=== PATIENT | female | born 1940 | race Caucasian/White ===

== ENCOUNTER → 2016-09-06 18:20 | Emergency (ER) | payer OTHER ==
[~2016-09-06 18:20] MED LIST changes: -ACETAMINOPHEN 325 MG TAB PO ONE
== END | disposition left against medical advice (07) ==
LOC: E/R 18:20
DX: Z53.21 Procedure and treatment not carried out due to patient leaving prior to being seen by health care provider (principal)

== ENCOUNTER → 2016-09-06 | Emergency (ER) | payer OTHER ==
[~2016-09-06] VITALS: Ht 160 cm; Wt 95.6 kg
[~2016-09-06] MED LIST: ACET500C5 PO; ACETAMINOPHEN 325 MG TAB PO ONE; ASPI-306; DUR25P; EZET1TAB40; FURO40TA4; METO100T; NCN500CCR; POTA75TA2; SULF1TAB7; VALS320T11
[2016-09-06 18:35] VITALS: Ht 160 cm; Wt 95.6 kg
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
[2016-09-06 20:43] VITALS: BP 186/88; PULSE 66; RESP 18; TEMP 98.3
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
== END | disposition home or self-care (01) ==
LOC: FTE 18:32
DX: S60.222A Contusion of left hand, initial encounter (principal); I10 Essential (primary) hypertension; E11.9 Type 2 diabetes mellitus without complications; V89.2XXA Person injured in unspecified motor-vehicle accident, traffic, initial encounter; Z95.1 Presence of aortocoronary bypass graft; Z79.82 Long term (current) use of aspirin
CPT/HCPCS: 70450; 72125; 73564; 93005

== ENCOUNTER 2017-12-13 09:36 | Emergency (ER) | END 2017-12-13 12:11 | disposition home or self-care (01) ==

== ENCOUNTER 2018-06-05 00:01 | Observation (INO) | END 2018-06-07 13:46 | disposition home or self-care (01) ==

== ENCOUNTER 2018-12-04 14:00 | Emergency (ER) | payer OTHER ==
[~2018-12-04] VITALS: Wt 89.0 kg
[~2018-12-04 14:00] MED LIST changes: -ACET500C5 PO; +ALLO300T2 PO; +AMOX1TAB9 PO; +CARV25TA79 PO; +DOCU-216 PO; -DUR25P; -EZET1TAB40; +HYDR-3672 PO; +ISOS5TAB2 PO; +LANT3I SC; +LINA5TAB PO; -METO100T; -NCN500CCR; +NOVO3I SC; +OMEP40CA6 PO; -POTA75TA2; +SIMV40TA2 PO; -SULF1TAB7; -VALS320T11
[2018-12-04] MEDS ORDERED: SOD CHLORIDE 0.9% 500 ML IV STA (14:21)
--- NOTE | 2018-12-04 14:28 | ERD ---
ER Documentation Chief Complaint Chief Complaint NOT FEELING WELL , HTN, TODAY CP, DIZZY HPI This is a 78-year-old female with a past medical history of hypertension, hyperlipidemia, diabetes, coronary artery disease, gated by previous OH status post three-vessel CABG, congestive heart failure who is presenting with 1 day of feeling generally unwell, waxing and waning lightheadedness. The patient also reports waxing and waning mid substernal nonradiating pressure-like chest discomfort beginning today. This pain lasted only a few minutes. She noticed that she was hypertensive at the time and reportedly took nitroglycerin. She felt lightheaded shortly after taking the nitroglycerin. The patient denies any trouble breathing. She has not had any episodes of diaphoresis. She has not had any nausea or vomiting. The patient currently reports feeling well. She does not endorse any chest pain currently. The patient denies feeling sick recently. The patient denies fever or chills. The patient has had no headache or vision changes. The patient does not endorse neck or back pain. The patient denies abdominal pain. The patient denies changes to bowel movements or urination. The patient has had no focal deficits. The patient has had no weakness or numbness or tingling to the face or extremities. ROS All systems reviewed and are negative except as per history of present illness. Medications Home Meds Reported Medications Calcium Carb/Mag Ox/Zinc Sulf (Rgckwqe-Ldkjsbjdm-Zvhd Tablet) 1 Each Tablet, 1 EACH PO DAILY, TAB 12/04/18 Cyanocobalamin (Vitamin B-12) (Vitamin B-12) 3,000 Mcg Tab.subl, 3000 MCG SL DAILY 12/04/18 [place]-3 Fatty Acids/Fish Oil (Fish Oil 1,000 mg Capsule) 1 Each Capsule, 1 EACH PO BID, CAP 12/04/18 Aspirin* (Aspirin* EC) 325 Mg Tab, 325 MG PO QHS, TAB 12/04/18 Insulin Glargine* (Lantus*) 100 Unit/Ml Soln, 32 UNIT SC QHS, #1 VIAL 12/04/18 Insulin Aspart* (Novolog Insulin Pen*) 100 Unit/Ml Soln, 18 UNIT SC WITH MEALS, EA 12/04/18 Nitroglycerin* (Nitroglycerin* SL) 0.4 Mg Tab.subl, 0.4 MG SL Q5MIN PRN for CHEST PAIN, BOTTLE 12/04/18 Colchicine* (Colcrys*) 0.6 Mg Tablet, 0.6 MG PO NEEDED, TAB 12/04/18 Docusate Sodium* (Colace*) 100 Mg Capsule, 100 MG PO DAILY, #30 CAP 12/04/18 Simvastatin* (Zocor*) 40 Mg Tablet, 40 MG PO QHS, #30 TAB 12/04/18 Allopurinol* (Allopurinol*) 300 Mg Tablet, 300 MG PO DAILY, TAB 12/04/18 Clonidine Hcl* (Clonidine Hcl*) 0.1 Mg Tab, 0.1 MG PO NEEDED, TAB 12/04/18 Hydralazine Hcl* (Hydralazine Hcl*) 100 Mg Tablet, 100 MG PO BID, #90 TAB 12/04/18 Isosorbide Dinitrate* (Isordil*) 5 Mg Tab, 5 MG PO BID, TAB 12/04/18 Carvedilol* (Carvedilol*) 25 Mg Tablet, 25 MG PO BID, #60 TAB 12/04/18 Losartan Potassium* (Losartan Potassium*) 100 Mg Tablet, 100 MG PO DAILY, TAB 12/04/18 Furosemide* (Furosemide*) 40 Mg Tablet, 40 MG PO DAILY, TAB 12/04/18 Omeprazole* (Omeprazole*) 40 Mg Capsule.dr, 40 MG PO DAILY, #30 CAP 12/04/18 Discontinued Reported Medications Omeprazole* (Omeprazole*) 40 Mg Capsule.dr, 40 MG PO QAM, #30 CAP 06/05/18 Simvastatin* (Zocor*) 40 Mg Tablet, 40 MG PO QHS, #30 TAB 06/05/18 Carvedilol* (Carvedilol*) 25 Mg Tablet, 25 MG PO BID, #60 TAB 06/05/18 Allopurinol* (Allopurinol*) 300 Mg Tablet, 300 MG PO DAILY, TAB 06/05/18 Insulin Glargine* (Lantus*) 100 Unit/Ml Soln, 30 UNIT SC QHS, #1 VIAL 06/05/18 Insulin Aspart* (Novolog Insulin Pen*) 100 Unit/Ml Soln, 18 UNIT SC TID, EA 06/05/18 Hydralazine Hcl* (Hydralazine Hcl*) 50 Mg Tab, 50 MG PO BID, #120 TAB 06/05/18 Isosorbide Dinitrate* (Isosorbide Dinitrate*) 5 Mg Tablet, 5 MG PO TID, TAB 06/05/18 Aspirin (Analgesic) 325 Mg Tablet 03/17/10 Furosemide (Lasix) 40 Mg Tab 03/17/10 Discontinued Scripts Amoxicillin/Potassium Clav (Amox-Clav 500-125 mg Tablet) 500-125 mg Tab, 1 TAB PO BID for 5 Days, #10 TAB Prov:SYED ANDRE 06/07/18 Linagliptin (TRADJENTA) 5 Mg Tablet, 5 MG PO DAILY, #30 TAB 2 Refills Prov:CELESTINE ALLENIrais 06/06/18 Docusate Sodium (Dok) 100 Mg Capsule, 100 MG PO BID, #60 CAP 1 Refill Prov:CELESTINE ALLENIrais 06/06/18 Allergies Allergies: Coded Allergies: Sulfa (Sulfonamide Antibiotics) (Verified Allergy, Severe, HALLUCINATION; SOB, 12/04/18) pioglitazone (Unverified Allergy, Mild, 12/04/18) hydrocodone (Verified Allergy, Unknown, 12/04/18) PMhx/Soc History of Surgery: Yes (OPEN HEART SURGERY, 3 BYPASS) Anesthesia Reaction: No Hx Neurological Disorder: No Hx Respiratory Disorders: No Hx Cardiac Disorders: Yes (CHF, HTN, HEART SURGERY, [place] CHOLESTEROL) Hx Psychiatric Problems: No Hx Miscellaneous Medical Probl: No Hx Alcohol Use: No Hx Substance Use: No Hx Tobacco Use: No FmHx Family History: diabetes Physical Exam Vitals Vital Signs Date Temp Pulse Resp B/P (MAP) Pulse Ox O2 O2 Flow FiO2 Time Delivery Rate 12/04/18 70 18 145/60 100 Room Air 17:15 (88) 12/04/18 69 18 149/81 100 Nasal 14:47 (103) Cannula 12/04/18 14:27 12/04/18 98.1 72 18 142/67 99 14:08 (92) Physical Exam Const: No acute distress Head: Atraumatic Eyes: Normal Conjunctiva ENT: Normal External Ears, Nose and Mouth. Neck: Full range of motion. No meningismus. Resp: Bibasilar rales. No increased work of breathing. Cardio: Regular rate and rhythm, no murmurs Abd: Soft, non tender, non distended. Normal bowel sounds Skin: No petechiae or rashes Back: No midline or flank tenderness Ext: No cyanosis, or edema Neur: Awake and alert Psych: Normal Mood and Affect Result Diagram: 12/04/18 1442 12/04/18 1442 Results 24 hrs Laboratory Tests Test 12/04/18 14:42 12/04/18 16:56 White Blood Count 8.8 10^3/ul Red Blood Count 3.83 10^6/ul Hemoglobin 11.2 g/dl Hematocrit 33.9 % Mean Corpuscular Volume 88.5 fl Mean Corpuscular Hemoglobin 29.2 pg Mean Corpuscular Hemoglobin Concent 33.0 g/dl Red Cell Distribution Width 14.5 % Platelet Count 188 10^3/UL Mean Platelet Volume 10.2 fl Immature Granulocytes % 0.900 % Neutrophils % 70.6 % Lymphocytes % 17.7 % Monocytes % 7.1 % Eosinophils % 3.2 % Basophils % 0.5 % Nucleated Red Blood Cells % 0.0 /100WBC Immature Granulocytes # 0.080 10^3/ul Neutrophils # 6.2 10^3/ul Lymphocytes # 1.6 10^3/ul Monocytes # 0.6 10^3/ul Eosinophils # 0.3 10^3/ul Basophils # 0.0 10^3/ul Nucleated Red Blood Cells # 0.0 10^3/ul Prothrombin Time 12.5 Sec Prothrombin Time Ratio 1.0 INR International Normalized Ratio 0.92 Sodium Level 138 mmol/L Potassium Level 4.3 mmol/L Chloride Level 103 mmol/L Carbon Dioxide Level 25 mmol/L Anion Gap 10 Blood Urea Nitrogen 35 mg/dl Creatinine 1.88 mg/dl Est Glomerular Filtrat Rate mL/min mL/min Glucose Level 176 mg/dl Calcium Level 9.7 mg/dl Troponin I < 0.012 ng/ml < 0.012 ng/ml B-Type Natriuretic Peptide 830 PG/ML Current Medications Medications Dose Sig/Jerald Start Time Status Last (Trade) Ordered Route PRN Stop Time Admin Dose Reason Admin Sodium 500 ml @ Q1H STAT 12/04/18 DC 12/04/18 Chloride 500 mls/hr IV 14:21 14:46 12/04/18 15:20 Procedures/MDM MDM The patient's presentation warrants further investigation. Previous medical records, if available, were reviewed. LABS The patient's laboratory testing was obtained and reviewed. No emergent treatment was required unless described below. CBC: No E/o systemic infection or thrombocytopenia. Normocytic anemia, nonemergent. Chemistry: No E/o severe acidosis or alkalosis or diabetic ketoacidosis. Elevated BUN and creatinine with known kidney disease. PT/INR: No E/o significant coagulopathy Troponin: No E/o acute ischemia x2 BNP: Indeterminate without clinical suspicion of any acute heart failure exacerbation. EKG EKG read by me: Rate/Rhythm: Regular rate and rhythm at a rate of 60 bpm Intervals: Normal Paragon: Normal Impression: T wave flattening in the inferior leads without evidence of acute ischemia or arrhythmia IMAGING Imaging and Radiology interpretation reviewed. CXR FINDINGS: Lines/Tubes: None. Low lung volumes accentuate the cardiac silhouette and vascular markings. Mild left basilar atelectasis. No focal consolidation, pleural effusions, or pneumothorax. Apparent left lateral chronic rib fracture deformities. Sternotomy wires are present. Apparent small hiatal hernia. IMPRESSION: 1. Mild left basilar atelectasis in this low lung volume exam. 2. Apparent small hiatal hernia. Electronically viewed and signed by Sari Otero Physician on 12/04/2018 14:49 TREATMENT/DISPOSITION The patient's chest xray does not reveal pneumonia or pneumothorax or pleural effusions or pulmonary edema. The patient does not have a widened mediastinum and does not have signs or symptoms concerning for thoracic aortic aneurysm or dissection. The patient does not have pneumomediastinum or signs concerning for esophageal tear or rupture. The patient has no clinical or radiographic signs of pericardial effusion or tamponade. The patient does not have pneumoperitoneum and I have decreased suspicion of viscus perforation as possible referred pain. The patient does not have a history of heart failure and I have low suspicion for this. The patient does not have a diagnosis of COPD and is not wheezing today. The patient is not tachypneic or hypoxic. The patient is breathing comfortably and without pleuritic pain. The patient is not on hormonal therapy. The patient has no history of clotting or bleeding disorders. The patient has no calf tenderness. The patient has had no hemoptysis. I have decreased suspicion for PE. The patient's troponin and EKG are reassuring. Repeat troponin was sent off approximately 2 hours later, which remained unremarkable. I have very low suspicion for acute coronary syndrome. I spoke with Dr. Seth, oncall supply chain tech for the patient's supply chain tech, Dr. Daniels, who was reassured by the work-up. He felt that outpatient management in the next 3 days would be appropriate. DISCHARGE Upon reevaluation of the patient, symptoms have improved. No emergent diagnoses were identified. At this time, I feel that the patient stable for discharge. The patient was instructed to follow-up with a primary care physician in 1-3 days. The patient will be given strict precautions with which to return to the emergency department. Prescriptions: None The patient's blood pressure was elevated at greater than 120/80 while in the emergency department. The patient was otherwise stable with no evidence of hypertensive urgency or emergency. The patient does not require admission for blood pressure control. I have discussed with the patient the risks of hypertension. I have instructed the patient to return to the ER for any new or worsening symptoms including chest pain, shortness of breath, headache, blurred vision, confusion, nausea, vomiting or LOC. I have advised the patient to follow up with the primary care physician for outpatient monitoring and treatment for hypertension in 1-3 days. Disclaimer: Inadvertent spelling and grammatical errors are likely due to EHR /dictation software use and do not reflect on the overall quality of patient care. Note that the electronic time recorded on this note does not necessarily reflect the actual time of the patient encounter. Departure Diagnosis: Primary Impression: Nonspecific chest pain Additional Impressions: Fatigue Fatigue type: unspecified Qualified Codes: R53.83 - Other fatigue Elevated blood pressure reading Normocytic anemia Chronic kidney disease Chronic kidney disease stage: unspecified stage Qualified Codes: N18.9 - Chronic kidney disease, unspecified Chronic CHF Heart failure type: unspecified Qualified Codes: I50.9 - Heart failure, unspecified Condition: Stable Patient Instructions: Chest Pain, Uncertain Cause, Generalized Weakness, Heart Failure, General Additional Instructions: Thank you for for coming to [facility] for your care today. Please ask your nurse or provider if you have questions about your care today and do not leave until all your questions have been answered. Please use any medications given as directed and follow-up with your doctor (or the doctor you were referred to) in the next 1-3 days. If you do not have a primary care doctor you may follow up at the [facility] or [facility] clinic (listed below). You may also use motrin and tylenol as needed for fever and/or pain unless instructed otherwise by your provider or nurse. Indications for more urgent follow-up have been discussed, but you may return to the Emergency Department at ANY time for any worrisome or worsening symptoms. If you have abdominal pain, please know that no test or exam you received is perfect and you should follow up within 8 hours for continued pain. If you had any imaging studies today, such as an X-Ray or CT Scan, these studies will be reviewed later by a radiologist. You will be called if there are important findings that were not identified today, so make sure the contact information you provided at registration is correct. If you received any narcotic pain control medicine today, such as Vicodin, Morphine or Dilaudid, your coordination and judgment may be affected for a number of hours. Please do not drive or operate heavy machinery, and you may want someone to assist you at home. If you were given a prescription for narcotic medication, be aware that it is very addictive- use sparingly and only if necessary. PLEASE SEEK FURTHER EVALUATION AND MANAGEMENT AT YOUR DOCTORS OFFICE WITHIN THE NEXT 1-3 DAYS. IT IS YOUR RESPONSIBILITY TO MAKE AN APPOINTMENT FOR FOLOW-UP CARE. IF YOU HAVE A PRIMARY DOCTOR, PLEASE CALL THEIR OFFICE TO SCHEDULE AN APPOIN TMENT FOR FOLLOW UP. IF YOU DO NOT HAVE A PRIMARY DOCTOR YOU CAN CALL OUR PHYSICIAN REFERRAL HOTLINE AT IF YOU CAN NOT AFFORD TO SEE A PHYSICIAN YOU CAN CHOSE FROM THE FOLLOWING [facility] CLINICS: [facility] [address] [facility] [address] [facility]. [facility] [address] [facility] [address] [facility] [address] [facility]. [facility]. [address] KOBE LOTT MD December 04, 2018 14:27
[2018-12-04] MEDS ORDERED: OMEP40CA6 PO (15:01)
[2018-12-04] MEDS ORDERED: CARV25TA79 PO (15:02)
[2018-12-04] MEDS ORDERED: FURO40TA4 PO (15:02)
[2018-12-04] MEDS ORDERED: LOSA100T15 PO (15:02)
[2018-12-04] MEDS ORDERED: ISOS5TAB2 PO (15:03)
[2018-12-04] MEDS ORDERED: ALLO300T2 PO (15:04)
[2018-12-04] MEDS ORDERED: HYDR100T25 PO (15:04)
[2018-12-04] MEDS ORDERED: CLON-379 PO (15:04)
[2018-12-04] MEDS ORDERED: DOCU-144 PO (15:05)
[2018-12-04] MEDS ORDERED: SIMV40TA2 PO (15:05)
[2018-12-04] MEDS ORDERED: NITR0.4T32 SL (15:06)
[2018-12-04] MEDS ORDERED: COLC0.6T6 PO (15:06)
[2018-12-04] MEDS ORDERED: NOVO3I SC (15:06)
[2018-12-04] MEDS ORDERED: LANT3I SC (15:07)
[2018-12-04] MEDS ORDERED: ASPI325T32 PO (15:07)
[2018-12-04] MEDS ORDERED: OMEG-135 PO (15:08)
[2018-12-04] MEDS ORDERED: CYAN30003 SL (15:09)
[2018-12-04] MEDS ORDERED: CALC-729 PO (15:10)
[2018-12-04 18:43] VITALS: BP 145/64; PULSE 75; RESP 18
== END 2018-12-04 18:49 | disposition home or self-care (01) ==
LOC: E/R 14:00
DX: D64.9 Anemia, unspecified (principal); I13.0 Hypertensive heart and chronic kidney disease with heart failure and stage 1 through stage 4 chronic kidney disease, or unspecified chronic kidney disease; N18.9 Chronic kidney disease, unspecified; I50.9 Heart failure, unspecified; E11.9 Type 2 diabetes mellitus without complications; I25.10 Atherosclerotic heart disease of native coronary artery without angina pectoris; I25.2 Old myocardial infarction; Z95.1 Presence of aortocoronary bypass graft; Z79.82 Long term (current) use of aspirin; Z79.4 Long term (current) use of insulin
CPT/HCPCS: 36415; 71045; 80048; 83880; 84484; 85025; 85610; 93005; 96360; 96361; 99285; J7040

== ENCOUNTER 2019-03-16 14:06 | Emergency (ER) | payer OTHER ==
[~2019-03-16 14:06] MED LIST changes: -AMOX1TAB9 PO; -ASPI-306; +ASPI325T32 PO; +CALC-729 PO; +CLON-379 PO; +COLC0.6T6 PO; +CYAN30003 SL; +DOCU-144 PO; -DOCU-216 PO; -FURO40TA4; +FURO40TA4 PO; -HYDR-3672 PO; +HYDR100T25 PO; -LINA5TAB PO; +LOSA100T15 PO; +NITR0.4T32 SL; +OMEG-135 PO
== END 2019-03-16 16:46 | disposition left against medical advice (07) ==
LOC: E/R 14:06
DX: Z53.21 Procedure and treatment not carried out due to patient leaving prior to being seen by health care provider (principal)

== ENCOUNTER 2019-03-16 18:50 | Emergency (ER) | payer OTHER ==
[~2019-03-16] VITALS: Ht 162.6 cm; Wt 88.7 kg
[2019-03-16 19:03] VITALS: Ht 162.6 cm; Wt 88.7 kg
[2019-03-16] MEDS ORDERED: NICARDipine HCL 30 MG CAPSULE PO ONE (20:00)
[2019-03-16 21:01] VITALS: BP 119/52; PULSE 58; RESP 14
== END 2019-03-16 21:20 | disposition home or self-care (01) ==
LOC: E/R 18:50
DX: I13.0 Hypertensive heart and chronic kidney disease with heart failure and stage 1 through stage 4 chronic kidney disease, or unspecified chronic kidney disease (principal); N18.9 Chronic kidney disease, unspecified; I50.9 Heart failure, unspecified; Z79.82 Long term (current) use of aspirin; Z79.4 Long term (current) use of insulin
CPT/HCPCS: 36415; 71045; 80048; 84484; 85025; 93005